=== PATIENT | female | born 1965 | race Caucasian/White ===

== ENCOUNTER → 2017-11-05 | Outpatient (CLI) | payer BC ==
[~2017-11-05] MED LIST: NORG-1 PO
--- NOTE | 2017-11-06 08:20 | RADIOLOGY IMAGING REPORT ---
FACILITY: [facility] [place] PATIENT NAME: KAYLENE PARRA : [id number] MR: [id number] V: [id number] EXAM DATE: [id number] ORDERING PHYSICIAN: FARA ABDI TECHNOLOGIST: Liz Thorne PROCEDURE:BILATERAL DIGITAL SCREENING MAMMOGRAM WITH CAD ASSISTED INTERPRETATION & 3D TOMOSYNTHESIS COMPARISON:Prior mammograms 04/14/16, 03/17/15, 02/03/14, 01/21/13, 08/10/11. INDICATIONS:screening FINDINGS: Moderately heterogeneous fibroglandular tissue is seen throughout the breasts. In the upper outer quadrant of the Left breast is a focal area of increased density with slight architectural distortion for which Spot compression view is recommended. DIAGNOSTIC CATEGORY 0--INCOMPLETE: NEED ADDITIONAL IMAGING EVALUATION. RECOMMENDATIONS: ADDITIONAL MAMMOGRAPHIC VIEWS REQUIRED: LEFT BREAST. IMPRESSION: BIRADS 0: Incomplete Addition view of Left breast recommended as described. Dictated by: Avelina Gonzales M.D. on 11/05/2017 at 15:25 Transcribed by: PAUL on 11/05/2017 at 15:36 Approved by: Avelina Gonzales M.D. on 11/06/2017 at 8:19 [facility]
== END ==
LOC: MAMO 01:40
PROVIDERS: ATTEND Obstetrics & Gynecology
DX: Z12.31 Encounter for screening mammogram for malignant neoplasm of breast (principal); R92.8 Other abnormal and inconclusive findings on diagnostic imaging of breast
CPT/HCPCS: 77063; 77067

== ENCOUNTER → 2017-11-16 | Outpatient (CLI) | payer BC ==
--- NOTE | 2017-11-16 15:00 | RADIOLOGY IMAGING REPORT ---
FACILITY: [facility] [place] PATIENT NAME: KAYLENE PARRA : [id number] MR: [id number] V: [id number] EXAM DATE: [id number] ORDERING PHYSICIAN: FARA ABDI TECHNOLOGIST: Lotus Mart PROCEDURE:LEFT DIGITAL DIAGNOSTIC MAMMOGRAM WITH CAD ASSISTED INTERPRETATION & 3D TOMOSYNTHESIS Views obtained: Left breast full field 2D ML, Spot compression CC & MLO 2D & 3D. COMPARISON:Bilateral screening mammogram 11/05/2017, 04/14/2016. INDICATIONS:FURTHER EVALUATION History: Left breast upper outer quadrant asymmetry. FINDINGS: The Left upper outer quadrant asymmetry spreads out with focal compression views and on the ML view. No underlying mass or architectural distortion is seen. RECOMMENDATIONS: RESUME ANNUAL BILATERAL SCREENING MAMMOGRAPHY. IMPRESSION: BIRADS 1: Negative. Dictated by: Yin Curtis M.D. on 11/16/2017 at 14:05 Transcribed by: PAUL on 11/16/2017 at 14:14 Approved by: Yin Curtis M.D. on 11/16/2017 at 15:00 [facility]
== END ==
LOC: MAMO 02:32
PROVIDERS: ATTEND Obstetrics & Gynecology
DX: R92.8 Other abnormal and inconclusive findings on diagnostic imaging of breast (principal)
CPT/HCPCS: 77061; 77065